=== PATIENT | female | born 1990 | race Caucasian/White ===

== ENCOUNTER → 2023-09-25 | Outpatient (REF) | payer OTHER ==
[~2023-09-25] MED LIST: PRENTAB9 PO
[2023-09-25 18:43] LABS: GC DNA AMPLIFICATION NEGATIVE (NEGATIVE)
== END ==
LOC: M PLALAB 14:48
PROVIDERS: ATTEND Advanced Practice Midwife
DX: Z36.89 Encounter for other specified antenatal screening (principal); O10.013 Pre-existing essential hypertension complicating pregnancy, third trimester; Z3A.29 29 weeks gestation of pregnancy

== ENCOUNTER 2023-10-03 19:01 | Outpatient (CLI) | payer OTHER ==
[~2023-10-03] VITALS: Ht 167.6 cm; Wt 107.3 kg
[2023-10-03 19:17] VITALS: BP 138/84
[2023-10-03 20:30] VITALS: BP 128/72
[2023-10-03] MEDS ORDERED: MACR100C43 PO (20:57)
[2023-10-03] MEDS ORDERED: NITROFURANTOIN (MACROBID) 100 MG CAP PO ONE (21:00)
== END 2023-10-03 20:30 | disposition home or self-care (01) ==
LOC: M LDO 19:01
PROVIDERS: ATTEND Obstetrics & Gynecology
DX: O26.893 Other specified pregnancy related conditions, third trimester (principal); O10.013 Pre-existing essential hypertension complicating pregnancy, third trimester; O34.219 Maternal care for unspecified type scar from previous cesarean delivery; O99.333 Smoking (tobacco) complicating pregnancy, third trimester; O99.323 Drug use complicating pregnancy, third trimester; F17.210 Nicotine dependence, cigarettes, uncomplicated; R10.9 Unspecified abdominal pain; F11.11 Opioid abuse, in remission; Z86.59 Personal history of other mental and behavioral disorders; Z3A.31 31 weeks gestation of pregnancy
CPT/HCPCS: 59025; 81001; 87086; G0463

== ENCOUNTER → 2023-10-09 | Outpatient (CLI) | payer OTHER ==
[~2023-10-09] MED LIST changes: +MACR100C43 PO
[2023-10-09 18:24] LABS: HEMATOCRIT 35.4 % (36.0-47.0); HEMOGLOBIN 11.6 g/dl (12.0-15.5); MEAN CORPUSCULAR HEMOGLOBIN 29.2 pg (27.0-33.0); MEAN CORPUSCULAR HGB CONC 32.8 g/dl (32.0-36.5); MEAN CORPUSCULAR VOLUME 89.2 fl (80.0-96.0); PLATELET COUNT, AUTOMATED 223 10^3/uL (150-450); RED BLOOD COUNT 3.97 10^6/uL (4.00-5.40); WHITE BLOOD COUNT 9.2 10^3/uL (4.0-10.0)
[2023-10-09 20:09] LABS: CHLAMYDIA DNA AMPLIFICATION NEGATIVE (NEGATIVE); GC DNA AMPLIFICATION NEGATIVE (NEGATIVE)
== END ==
LOC: M PLALAB 14:45
PROVIDERS: ATTEND Advanced Practice Midwife
DX: O10.013 Pre-existing essential hypertension complicating pregnancy, third trimester (principal); Z3A.00 Weeks of gestation of pregnancy not specified

== ENCOUNTER 2023-10-20 14:21 | Outpatient (CLI) | payer MEDICAID, OTHER ==
[~2023-10-20] VITALS: Ht 167.6 cm; Wt 107.9 kg
[2023-10-20] VITALS (8 sets, daily range): BP systolic 115–159; BP diastolic 57–112
[~2023-10-20 14:21] MED LIST changes: -ACET325C5 PO
[2023-10-20] MEDS ORDERED: ACET325C5 PO (14:45)
== END 2023-10-20 16:42 | disposition home or self-care (01) ==
LOC: M LDO 14:21
PROVIDERS: ATTEND Obstetrics & Gynecology
DX: O10.013 Pre-existing essential hypertension complicating pregnancy, third trimester (principal); O34.219 Maternal care for unspecified type scar from previous cesarean delivery; O99.333 Smoking (tobacco) complicating pregnancy, third trimester; F17.210 Nicotine dependence, cigarettes, uncomplicated; Z86.59 Personal history of other mental and behavioral disorders; Z3A.34 34 weeks gestation of pregnancy
CPT/HCPCS: 59025; 76815; G0463

== ENCOUNTER → 2023-10-20 | Outpatient (CLI) | payer OTHER ==
[~2023-10-20] MED LIST changes: +ACET325C5 PO
== END ==
LOC: M WHC 09:40
PROVIDERS: ATTEND Obstetrics & Gynecology
DX: Z34.93 Encounter for supervision of normal pregnancy, unspecified, third trimester (principal)

== ENCOUNTER → 2023-10-21 | Outpatient (CLI) | payer OTHER ==
[~2023-10-21] MED LIST changes: +ACET325C5 PO
== END ==
LOC: M LAB 07:45
PROVIDERS: ATTEND Advanced Practice Midwife
DX: O99.810 Abnormal glucose complicating pregnancy (principal)

== ENCOUNTER → 2023-10-29 | Outpatient (CLI) | payer MEDICAID, OTHER ==
[2023-10-29 11:06] LABS: HEMATOCRIT 34.6 % (36.0-47.0); HEMOGLOBIN 11.5 g/dl (12.0-15.5); MEAN CORPUSCULAR HEMOGLOBIN 29.3 pg (27.0-33.0); MEAN CORPUSCULAR HGB CONC 33.2 g/dl (32.0-36.5); PLATELET COUNT, AUTOMATED 191 10^3/uL (150-450); RED BLOOD COUNT 3.93 10^6/uL (4.00-5.40); WHITE BLOOD COUNT 8.9 10^3/uL (4.0-10.0)
[2023-10-29 11:33] LABS: URIC ACID 6.2 MG/DL (3.1-7.8)
[2023-10-29 11:35] LABS: LDH LACTATE DEHYDROGENASE 143 U/L (120-246)
[2023-10-29 11:36] LABS: ALT/SGPT 25 U/L (7.0-40); AST/SGOT 25 U/L (<34); BILIRUBIN,TOTAL 0.5 MG/DL (0.3-1.2); CREATININE FOR GFR 0.52 MG/DL (0.55-1.30); GLOMERULAR FILTRATION RATE > 60.0 (>60)
[2023-10-29 14:53] LABS: TOTAL PROTEIN,RANDOM URINE 39.3 MG/DL (0.0-14.0)
[2023-10-29 14:58] LABS: CREATININE,RANDOM URINE 83.9 MG/DL
== END ==
LOC: M PLALAB 09:11
PROVIDERS: ATTEND Advanced Practice Midwife
DX: O16.3 Unspecified maternal hypertension, third trimester (principal); Z3A.00 Weeks of gestation of pregnancy not specified